=== PATIENT | male | born 1950 | race Two or more races ===

== ENCOUNTER 2025-03-28 08:30 | Emergency (ER) | payer SELFPAY ==
[~2025-03-28] VITALS: Ht 170.2 cm; Wt 68.3 kg
[2025-03-28 08:30] VITALS: BP 0/0; PULSE 0; RESP 0; TEMP 100.3; O2SAT 0
[2025-03-28] MEDS ORDERED: NOREPINEPHRINE 8 MG/250ML KIT 250 ML IV ONE (08:46)
--- NOTE | 2025-03-28 08:46 | ED.PDOC ---
CPR-HPI HPI Comments 66 year old male presents to the ED via EMS with a chief complaint of cardiac arrest onset today (03/28/25). Per EMS, patient was walking out of bathroom, collapsed, witnessed by family. Downtime prior to EMS arrival was approximately 10-15 minutes, total downtime prior to ED arrival was 35 minutes. Patient was given 5 rounds of epi prior to ED arrival, IO was attempted BLE, was intubated. EMS states patient was initially asystole. ROSC at 0832. After a while, He went back into pulseless rhythm, at 08:51 TOD was called. PMHx ESRD, HTN, currently on dialysis. Time Seen by MD: 08:27 Reviewed Notes: Medications, Allergies Allergies: Coded Allergies: UNOBTAINABLE (Unverified , 03/28/25) Information Source: Emergency Med Personnel Mode of Arrival: EMS Timing: Minutes Duration: Down time prior EMS: (10-15 mins), Total time prior hopital: (35 mins) Available Hx: Other Treatment: CPR, Intubation, Epinephrine Past Medical History PAST MEDICAL HISTORY: ESRD, HTN Surgical History: Unknown Family History Family History: Unknown Social History Smoker: Unknown Alcohol: Unknown Drugs: Unknown Lives In: Home Unable to Obtain due to: Intubated Physical Exam General Appearance: Severe Distress HEENT: Other (Pupils fixed dilated) Neck: Normal Inspection Respiratory: Respiratory Distress, Other (Intubated) Cardiovascular: Other (No pulse) Breast Exam: Deferred Gastrointestinal: Soft Genitalia: Deferred Pelvic: Deferred Rectal: Deferred Extremities: No pedal edema Neurologic: Other (Unconscious) Cerebellar Function: NOT DONE Reflexes: NOT DONE Skin: Pallor Peripheral Pulses: 0 Radial (R), 0 Radial (L) Lymphatic: NOT DONE Was a procedure done? 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 Indication: Inability to obtain IV Room prepared for procedure: Yes Retirement Sales Consultant performed hand hygien: Yes Maximal sterile barrier precau: Mask/Eye shield, Sterile gown, Cap, Sterlie g loves, Large sterlie drape Skin Preparation: Chlorhexidine gluconate, Providine iodine, Alcohol Skin preparation completely dr: Yes Insertion site: Right, Femoral Central line catheter type: [id number] dialysis Number of lumens: 3 Central line exchanged over a: Yes Antiseptic ointment applied to: Yes Post Assessment: Chest X-Ray, Proper placement Informed consent obtained: Yes Risks/benefits/alt described: Yes Differential Dx CPR Differential Diagnosis: Cardiopulmonary arrest, Electrolyte disorder X-Ray, Labs, Meds, VS Vital Signs Date Time Temp Pulse Resp B/P (MAP) Pulse Ox O2 Delivery O2 Flow Rate FiO2 03/28/25 10:09 0 Ambu-Bag 03/28/25 08:30 100.3 0 0 0/0 0 100.3 Patient unconscious. No pulse pain Continuous CPR in her care. Came in intubated. Chronic kidney disease. Dialysis. Continued ACLS drugs. Treated for hyperkalemia. Was able to revive the patient. Placed a central line. He went back into pulseless rhythm. Continuous CPR. Spoke with the team. Had to pronounce. Waiting for family. Time of 1ST Reevaluation: 08:57 Reevaluation 1ST: Unchanged Patient Education/Counseling: Pt Unresponsive Family Education/Counseling: No Family Present SEPSIS Sepsis Screen Vital Signs Date Time Temp Pulse Resp B/P (MAP) Pulse Ox O2 Delivery O2 Flow Rate FiO2 03/28/25 10:09 0 Ambu-Bag 03/28/25 08:30 100.3 0 0 0/0 0 100.3 Departure 1 Departure Time of Disposition: 09:41 Impression: Primary Impression: Respiratory failure Qualified Codes: J96.01 - Acute respiratory failure with hypoxia Additional Impressions: Chronic kidney disease Qualified Codes: N18.9 - Chronic kidney disease, unspecified Cardiac arrest Disposition: 20 Condition: Other Critical Care Note Critical Care Time?: Yes (90 min-critical care time only) Heart Score Heart Score: Heart Score Response (Comments) Value History N/A 0 EKG N/A 0 Age N/A 0 Risk Factors N/A 0 Troponin N/A 0 Total 0 Stability Stability form required: No I personally scribed for GREOGRIA ZAPATA MD ([email or web address]) on 03/28/25 at 08:46. Electronically submitted by Hiral Bahena ([email or web address]). I personally scribed for GREGORIA ZAPATA MD ([email or web address]) on 03/28/25 at 08:51. Electronically submitted by Hiral Bahena ([email or web address]). I personally scribed for GREGORIA ZAPATA MD ([email or web address]) on 03/28/25 at 09:23. Electronically submitted by Hiral Bahena ([email or web address]). I personally scribed for GREGORIA ZAPATA MD ([email or web address]) on 03/28/25 at 09:44. Electronically submitted by Hiral Bahena ([email or web address]). GREGORIA ZAPATA MD Mar 28, 2025 08:46
--- NOTE | 2025-03-28 10:09 | RESUS ---
CODE BLUE ASSESSSMENT History of Events History of Events: ARRIVED WITH EMS INTUBATED AND ON AUTOPULSE WITH CPR IN PROGRESS Initial Information Date: Mar 28, 2025 Time: 08:28 Monitoring: ECG, Pulse Oximetry, Capnography Crash Cart Opened and Supplies: Yes Airway Ventilation Breathing at Onset: Assisted Oxygen Delivery Method: Ambu-Bag Artificial Ventilation: Bag/Endo tube Intubated by: EMS Confirmation: Auscultation, Exhaled CO2 Circulation Circulation #1: Time: 08:30 Pulse Rate (adult): 0 Blood Pressure Systolic: 0 Blood Pressure Diastolic: 0 Temperature (Fahrenheit): 100.3 Circulation Comment: PEA, RECTAL TEMP Circulation #2: Time: 08:32 Pulse Rate (adult): 94 Circulation Comment: ROSC, BP CUFF NOT READING, EPI DRIP ORDERED PER DR Circulation #3: Time: 08:37 Pulse Rate (adult): 0 Blood Pressure Systolic: 0 Blood Pressure Diastolic: 0 Circulation Comment: LOST PULSES, BRADYCARDIA THEN PEA Circulation #4: Time: 08:39 Pulse Rate (adult): 0 Blood Pressure Systolic: 0 Blood Pressure Diastolic: 0 Circulation Comment: PEA Circulation #5: Time: 08:41 Pulse Rate (adult): 0 Blood Pressure Systolic: 0 Blood Pressure Diastolic: 0 Circulation Comment: PEA Circulation #6: Time: 08:43 Pulse Rate (adult): 70 Blood Pressure Systolic: 0 Blood Pressure Diastolic: 0 Circulation Comment: ROSC Circulation #7: Time: 08:46 Circulation Comment: LOST PULSES, PEA Circulation #8: Time: 08:48 Pulse Rate (adult): 0 Blood Pressure Systolic: 0 Blood Pressure Diastolic: 0 Circulation Comment: PEA Circulation #9: Time: 08:50 Pulse Rate (adult): 0 Blood Pressure Systolic: 0 Blood Pressure Diastolic: 0 Circulation Comment: PEA Circulation #10: Time: 08:51 Pulse Rate (adult): 0 Blood Pressure Systolic: 0 Blood Pressure Diastolic: 0 Circulation Comment: TIME OF CALLED BY DR Defibrillation Defbrillation : Time Defibrillator Applied: 08:28 Procedure - IV Procedure - IV #1: IV start time: 08:32 IV Side: Right IV Location: Wrist IV Catheter Type: Peripheral IV IV Placed: RN IV Gauge: 20 IV Line Care: Saline Flush Procedure - IV #2: IV start time: 08:37 IV Side: Right IV Location: Femoral IV Catheter Type: Triple Lumen Cath IV Placed: Procedure - Intraosseous Site of Intraosseous: Tibia tucker-medial Intraosseous inserted by: EMS INSERTED LEFT/RIGHT I/Os PRIOR TO ED ARRIVAL Medications & Response Medications and Responses #1: Medication Time: 08:30 ADULT Medications Given ADULT: 2 Amps Na Bicarb Route of Administration: IO Medications and Responses #2: Medication Time: 08:31 ADULT Medications Given ADULT: Epinephrine 1 mg Route of Administration: IO Medications and Responses #3: Medication Time: 08:33 ADULT Medications Given ADULT: Sodium Bacarbinate 50 meq, Calcium Chloride 10 mL Route of Administration: IV Medications and Responses #4: Medication Time: 08:37 ADULT Medications Given ADULT: Epinephrine 1 mg Route of Administration: IV Medications and Responses #5: Medication Time: 08:41 ADULT Medications Given ADULT: Epinephrine 1 mg, Atropine 1 mg Route of Administration: IV Medications and Responses #6: Medication Time: 08:46 ADULT Medications Given ADULT: Epinephrine 1 mg Nurses Notes [place] Coma Scale Eye Opening: None (1) [place] Coma Scale Verbal: None (1) [place] Coma Scale Motor: None (1) EKG Rhythm: PEA Time Code Ended Time Code Ended: 08:51 Post Arrest Status: Outcome of code: Unsuccessful Patient pronounced by: DR ZAPATA Time patient pronounced: 08:51 Code Team Present: KELSEY CASTILLO RN HOUSE SUPERVISOR, HARSH Chase RN ER CHARGE, JOSE M GALVEZ RN, [employer] TECH, BASIM TORRES, MONY SANCHEZ Robin R Mar 28, 2025 10:09
== END 2025-03-28 08:51 ==
LOC: ER 08:30 → EDBD 08:30 → ER 08:51
DX: I46.9 Cardiac arrest, cause unspecified (principal); J96.01 Acute respiratory failure with hypoxia; I12.0 Hypertensive chronic kidney disease with stage 5 chronic kidney disease or end stage renal disease; N18.6 End stage renal disease
CPT/HCPCS: 36556; 92950